=== PATIENT | female | born 1950 | race Caucasian/White ===

== ENCOUNTER 2017-07-02 09:13 | Day surgery (SDC) | payer OTHER ==
[2017-07-02] VITALS (9 sets, daily range): BP systolic 134–199; BP diastolic 64–105; PULSE 68–103; RESP 20; TEMP 97.3–98.3; O2SAT 93–99
[~2017-07-02] VITALS: Ht 154.9 cm; Wt 81.8 kg
[2017-07-02] MEDS ORDERED: TAMO20TA6 PO (09:35)
[2017-07-02] MEDS ORDERED: INSU1INJ5 SQ (09:35)
[2017-07-02] MEDS ORDERED: SODIUM CHLOR 0.9% 1000 ML IV SCH (10:00)
[2017-07-02] MEDS ORDERED: IMPLANTED VASCULAR ACCESS DEVICE/PORT - SODIUM CHLORIDE FLUSH IV FLUSH SCH (10:00)
[2017-07-02] MEDS ORDERED: IMPLANTED VASCULAR ACCESS DEVICE/PORT - SODIUM CHLORIDE FLUSH PRN IV FLUSH (10:00)
[2017-07-02 10:03] LABS: BASOPHIL % 0.4 % (0.0-2.0); EOSINOPHIL # 0.2 TH/MM3 (0-0.4); EOSINOPHIL % 2.6 % (0.0-4.0); HEMATOCRIT 35.8 % (35.0-46.0); LYMPHOCYTE # 2.5 TH/MM3 (1.0-4.8); MEAN CELL VOLUME 85.9 FL (80.0-100.0); MEAN CORPUSCULAR HEMOGLOBIN 28.7 PG (27.0-34.0); MEAN CORPUSCULAR HGB CONC 33.4 % (32.0-36.0); MEAN PLATELET VOLUME 9.4 FL (7.0-11.0); MONO % 6.2 % (0.0-8.0); MONOCYTE # 0.4 TH/MM3 (0-0.9); NEUT % 55.8 % (16.0-70.0); PLATELET COUNT 210 TH/MM3 (150-450); RED BLOOD COUNT 4.17 MIL/MM3 (4.00-5.30); RED CELL DISTRIBUTION WIDTH 14.2 % (11.6-17.2); WHITE BLOOD COUNT 7.1 TH/MM3 (4.0-11.0)
[2017-07-02] MEDS ORDERED: MIDAZOLAM HCL 2 MG/2 ML VIAL ONE (12:42)
[2017-07-02] MEDS ORDERED: LIDOCAINE HCL 1% 20 ML VIAL ONE (12:42)
[2017-07-02] MEDS ORDERED: ceFAZolin 2 GM PREMIX 50 ML ONE (13:38)
--- NOTE | 2017-07-02 14:08 | PD.RAD ---
Post CT Procedure Prog Note Pre Procedure Diagnosis: (1) Metastases to the liver Post Procedure Diagnosis: (1) Metastases to the liver Procedure Date: Jul 02, 2017 Supervising Radiologist: Daniel Mcknight Anesthesia: Conscious Sedation Plan of Activity Patient to Unit: [facility]U Patient Condition: Good See PACS Report for procedural detail/treatment Daniel Mcknight MD Jul 02, 2017 14:08
[2017-07-02] MEDS ORDERED: IOHEXOL 350 MG/ML 10 ML VIAL (for RAD DIAG) IVCONTRAST ONE (14:52)
--- NOTE | 2017-07-02 15:12 | RADRPT ---
EXAM DATE/TIME: 07/02/2017 13:23 [place] COMPARISON: No previous studies available for comparison. INDICATIONS : 67 year-old female with history of metastatic disease to segment 4A of the liver. Fiducial marker rosario cement requested for planned radiation therapy. SEDATION TIME: 50 MEDICATION(S): 1.) 3 mg midazolam (Versed) IV 2.) 150 mcg fentanyl (Sublimaze) IV DEVICE(S): 1.) 18 gauge fiducial needle 2.) 20 gauge fiducial needle MEDICAL HISTORY : Carcinoma, breast. Carcinoma, pancreas. Chronic obstructive pulmonary disease. Hypertension. Diabet es. SURGICAL HISTORY : Mastectomy, left. Pancreatic stent. ENCOUNTER: Initial ACUITY: 1 day PAIN SCORE: 0/10 LOCATION: Liver PROCEDURE: 1.) Conscious sedation with continuous EKG and oximetry monitoring. 2.) EKG and oximetry remained stable throughout the procedure. PROCEDURE : CT guided placement of fiducial markers The risks, benefits and alternatives to the procedure were explained and verbal and written consent w as obtained. Using automated exposure control and adjustment of the mA and/or kV according to patien t size, radiation dose was kept as low as reasonably achievable to obtain optimal diagnostic quality images. The site was prepped in sterile fashion. Full sterile technique was used, including cap, ma sk, sterile gloves and gown and a large sterile sheet. Hand hygiene and 2% chlorhexidine and/or beta dine/alcohol prep was utilized per protocol for cutaneous antisepsis. The skin and subcutaneous tiss ues were infiltrated with local anesthetic solution. DICOM format image data is available electronic ally for review and comparison. The patient was placed supine. An 18 gauge fiducial marker was placed using a medial anterior approac h. D. fiducial marker was placed slightly medial and cephalad to the very small subcentimeter lesion in segment 4A. Therefore, a second 20 gauge fiducial marker was placed using an anterolateral approac h. This marker was placed immediately posterior at the level of the mass. A contrast-enhanced postpro cedural CT exam was performed to confirm position. This confirmed the findings. Incidentally noted ar e multiple large gallstones in the gallbladder with diffuse gallbladder wall thickening. CONCLUSION: 1. Technically successful CT-guided placement of fiducial markers for anticipated radiation therapy. Daniel Mcknight MD on July 02, 2017 at 14:49 Board Certified Radiologist. This report was verified electronically.
== END 2017-07-02 17:54 | disposition home or self-care (01) ==
LOC: HRAD 09:13 → HRIP 09:14 → HRAD 17:54
PROVIDERS: ATTEND Specialist
DX: C78.7 Secondary malignant neoplasm of liver and intrahepatic bile duct (principal); C25.9 Malignant neoplasm of pancreas, unspecified; I10 Essential (primary) hypertension; E11.9 Type 2 diabetes mellitus without complications; J44.9 Chronic obstructive pulmonary disease, unspecified; Z85.3 Personal history of malignant neoplasm of breast; Z01.818 Encounter for other preprocedural examination
CPT/HCPCS: 49411; 77012; 85025; 85610; 85730; J0690; J1642; J2250; J3010; J7030; Q9967